=== PATIENT | male | born 1985 | race Caucasian/White ===

== ENCOUNTER 2024-11-03 00:11 | Observation (INO) | payer BC, SELFPAY ==
[2024-11-03] VITALS (67 sets, daily range): BP systolic 110–159; BP diastolic 77–108; PULSE 58–74; TEMP 36.4–36.6; O2SAT 89–97; BMI 26.6; BMI 28.6
--- NOTE | 2024-11-03 00:34 | ED.GENADUL1 ---
HPI HPI - General Adult General Chief complaint: Back Pain/Injury Stated complaint: BACK PAIN Time Seen by Provider: 11/03/24 00:22 Source: patient Mode of arrival: walk-in Limitations: no limitations History of Present Illness HPI narrative: cc = I think I have a kidney stone Pt with sudden onset right flank pain that began less than an hour ago but was preceded about 24 hours ago with some right sided abd and groin pain and decreased urine output despite sensation of need to urinate. No fever or chills. no skin changes. No recent trauma or change in activity to account for the pain Related Data Allergies Allergy/AdvReac Type Severity Reaction Status Date / Time No Known Drug Allergies Allergy Verified 11/03/24 00:15 Opioid HPI Opioid Management Most Recent Opioid Data: Last Pain Scale 8 11/03/24 00:28 11/03/24 PFSH PFSH Social History Little interest or pleasure in doing things: not at all Feeling down, depressed, or hopeless: not at all Exam Narrative Exam Narrative: Nurses notes and vital signs reviewed and patient is not hypoxic. afebrile General: uncomfortable. Skin: Warm, dry, no pallor noted. No rash to flank. Head: Normocephalic, atraumatic. Eye: Pupils are equal, round and EOMI. No scleral icterus. Ears, Nose, Mouth, and Throat: Oral mucosa is moist Cardiovascular: Regular Rate and Rhythm without murmur, gallop or rub. Respiratory: No accessory muscle use or respiratory distress. Lungs are clear to auscultation, no wheezing, rales or rhonchi Back: Right CVA tenderness Musculoskeletal: normal ROM GI: Abdomen is soft, non-distended. Normal bowel sounds.Right lateral abdominal tenderness to palpation. No rebound, guarding, or rigidity noted. Neurological: A&O x4. No cranial nerve dysfunction observed. No truncal ataxia. Moves all extremities. Sensation intact. Psychiatric: Cooperative and interactive. Normal mood and affect. Constitutional Vital Signs, click to edit/add: Last Vital Signs Temp 97.9 F 11/03/24 00:15 Pulse 66 11/03/24 00:15 Resp 16 11/03/24 00:15 BP 159/108 H 11/03/24 00:15 Pulse Ox 97 11/03/24 00:15 O2 Del Method Room Air 11/03/24 00:15 Course Vital Signs Vital signs: Vital Signs Temperature 97.9 F 11/03/24 00:15 Pulse Rate 66 11/03/24 00:15 Respiratory Rate 16 11/03/24 00:15 Blood Pressure 159/108 H 11/03/24 00:15 Pulse Oximetry 97 11/03/24 00:15 Oxygen Delivery Method Room Air 11/03/24 00:15 Temperature 97.9 F 11/03/24 00:15 Pulse Rate 66 11/03/24 00:15 Respiratory Rate 16 11/03/24 00:15 Blood Pressure 159/108 H 11/03/24 00:15 Pulse Oximetry 97 11/03/24 00:15 Oxygen Delivery Method Room Air 11/03/24 00:15 Medical Decision Making MDM Narrative Medical decision making narrative: Patient presents with symptoms concerning for acute kidney stone. He said that it had been more than 10 years since he had a kidney stone and has had no recent CT scans. Peripheral IV established blood drawn and sent for testing. Urine also ordered to be sent for testing. Patient ordered to undergo CT scanning of the abdomen and pelvis without contrast. He is ordered to receive IV Toradol and IV Zofran for his symptoms. He continues to have pain and was given 50 mcg of fentanyl. He was also given an additional 4 mg of nausea and an additional 50 mcg of fentanyl as symptoms persisted. CT of the abdomen pelvis revealed 3 mm distal right ureteral stone just above the right UVJ with associated partial right renal obstruction and mild right hydronephrosis. Despite repeated doses of pain medicine and antiemetics, the patient's symptoms were not improved enough for him to go home as he continued to have nausea, vomiting and intractable pain. I spoke with the telehospitalist and the patient will be admitted on an observation basis to medical surgical floor for pain control. I ordered him to receive IV Cipro as prophylaxis to prevent any associated infection. At this point the 3 mm stone is at the distal right UVJ and based on size I would expect it to pass. He does have some partial right renal obstruction and mild right hydro but there is flow there and the patient has normal renal function with only minimal increase in white blood cell count. Patient and I discussed his results, plan for treatment and the patient is agreeable to admission. Lab Data Lab results reviewed: Yes I reviewed the patient's lab results Labs: Lab Results 11/03/24 11/03/24 Range/Units 00:20 00:24 WBC 12.4 H (4.0-11.0) 10^3/uL RBC 5.70 (4.70-6.10) 10^6/uL Hgb 17.1 (14.0-18.0) g/dL Hct 47.4 (42.0-54.0) % MCV 83.2 (80.0-94.0) fL MCH 30.0 (25.9-34.0) pg MCHC 36.1 H (29.9-35.2) g/dL RDW 12.2 (11.0-15.0) % Plt Count 236 (150-450) 10^3/uL MPV 11.1 (9.5-13.5) fL Neut % (Auto) 62.5 (43.0-75.0) % Lymph % (Auto) 23.1 (20.5-60.0) % [place] % (Auto) 9.8 (1.7-12.0) % Eos % (Auto) 3.4 (0.9-7.0) % Baso % (Auto) 0.6 (0.2-2.0) % Neut # (Auto) 7.8 H (1.4-6.5) 10^3/uL Lymph # (Auto) 2.9 (1.2-3.8) 10^3/uL [place] # (Auto) 1.2 H (0.3-0.8) 10^3/uL Eos # (Auto) 0.4 (0.0-0.7) 10^3/uL Baso # (Auto) 0.1 (0.0-0.1) 10^3/uL Abs Immat Gran (auto) 0.07 H (0.00-0.03) 10^3/uL Imm/Tot Granulo (auto) 0.6 H (0.0-0.5) % Sodium 140 (136-145) mmol/L Potassium 3.6 (3.5-5.1) mmol/L Chloride 103 (98-107) mmol/L Carbon Dioxide 26.4 (21.0-32.0) mmol/L Anion Gap 14.2 BUN 12.0 (7.0-18.0) mg/dL Creatinine 1.23 (0.70-1.30) mg/dL Est GFR ( Amer) >60 (>=60 mL/min/1.73m^2) Est GFR (Non-Af Amer) >60 (>=60 mL/min/1.73m^2) BUN/Creatinine Ratio 9.8 Glucose 132 H (74-106) mg/dL Calcium 9.0 (8.5-10.1) mg/dL Urine Color Yellow (YELLOW) Urine Clarity Clear (CLEAR) Urine pH 5.5 (5.0-9.0) Ur Specific [place] >=1.030 A (1.005-1.025) Urine Protein 30 A (NEG/TRACE) mg/dL Urine Glucose (UA) Negative (NEGATIVE) mg/dL Urine Ketones Trace A (NEGATIVE) mg/dL Urine Occult Blood Large A (NEGATIVE) Urine Nitrite Negative (NEGATIVE) Urine Bilirubin Negative (NEGATIVE) Urine Urobilinogen 0.2 (0.2-1.0) EU/dL Ur Leukocyte Esterase Negative (NEGATIVE) Urine RBC 2-5 A (0-2) #/HPF Urine WBC 0-2 A (NONE SEEN) #/HPF Ur Squamous Epith Cells None seen (NONE/RARE) #/LPF Urine Crystals None seen (None Seen) #/HPF Urine Bacteria None seen (NONE SEEN) #/HPF Urine Casts Seen A (NONE SEEN) #/LPF Hyaline Casts Few Urine Mucus Trace A (NONE SEEN) Imaging Data CT scan - abdomen: Radiologist's impression: Radiologist report = 1. 3 mm stone in the distal right ureter located just above the right UVJ with associated partial right renal obstruction. 2. Mild right hydronephrosis. 3. Mild stranding noted along the margins of the right kidney and right ureter. 4. Normal appendix. 5. Small nonspecific mesenteric nodes. Discharge Plan Discharge Chief Complaint: Back Pain/Injury Clinical Impression: Intractable pain, Renal colic, Calculus of distal right ureter, Hydronephrosis, right Patient Disposition: Admitted as Observation Time of Disposition Decision: 03:57 Print Language: Kiswahili Referrals: Physician,Non-Staff, [Primary Care Provider] - 1 week
[2024-11-03 00:41] LABS: Basophils Absolute Auto 0.1 10^3/uL (0.0-0.1); Basophils Percent Auto 0.6 % (0.2-2.0); Eosinophils Absolute Auto 0.4 10^3/uL (0.0-0.7); Eosinophils Percent Auto 3.4 % (0.9-7.0); Hematocrit 47.4 % (42.0-54.0); Hemoglobin 17.1 g/dL (14.0-18.0); Immature Granulocytes Abs Auto 0.07 10^3/uL (0.00-0.03); Immature Granulocytes Pct Auto 0.6 % (0.0-0.5); Lymphocytes Absolute Auto 2.9 10^3/uL (1.2-3.8); Lymphocytes Percent Auto 23.1 % (20.5-60.0); Mean Corpuscular HGB Conc 36.1 g/dL (29.9-35.2); Mean Corpuscular Volume 83.2 fL (80.0-94.0); Mean Platelet Volume 11.1 fL (9.5-13.5); Monocytes Absolute Auto 1.2 10^3/uL (0.3-0.8); Monocytes Percent Auto 9.8 % (1.7-12.0); Neutrophils Absolute Auto 7.8 10^3/uL (1.4-6.5); Neutrophils Percent Auto 62.5 % (43.0-75.0); Platelet Count 236 10^3/uL (150-450); Red Cell Distribution Width 12.2 % (11.0-15.0); White Blood Count 12.4 10^3/uL (4.0-11.0)
[2024-11-03] MEDS: KETOROLAC TROMETHAMINE 30 MG/ML VIAL IVP (00:45)
[2024-11-03] MEDS: ONDANSETRON PF 4 MG/2 ML VIAL IV ×2 (00:45→01:34)
[2024-11-03 00:46] LABS: Anion Gap 14.2; BUN Creatinine Ratio 9.8; Carbon Dioxide 26.4 mmol/L (21.0-32.0); Chloride 103 mmol/L (98-107); Estimated GFR (African America >60 (>=60 mL/min/1.73m^2); Estimated GFR (Non-African Ame >60 (>=60 mL/min/1.73m^2); Glucose 132 mg/dL (74-106); Potassium 3.6 mmol/L (3.5-5.1); Sodium 140 mmol/L (136-145)
[2024-11-03 00:48] LABS: Bilirubin Urine NEGATIVE (NEGATIVE); Blood Urine LARGE (NEGATIVE); Clarity Urine CLEAR (CLEAR); Color Urine YELLOW (YELLOW); Glucose Urine UA NEGATIVE (NEGATIVE); Ketones Urine TRACE mg/dL (NEGATIVE); Leukocyte Esterase Urine NEGATIVE (NEGATIVE); Nitrite Urine NEGATIVE (NEGATIVE); Protein Urine 30 mg/dL (NEG/TRACE); Specific Gravity Urine >=1.030 (1.005-1.025); Urobilinogen Urine 0.2 EU/dL (0.2-1.0); pH Urine 5.5 (5.0-9.0)
[2024-11-03 00:51] LABS: WBC Urine 0-2 #/HPF (NONE SEEN)
[2024-11-03 00:52] LABS: Bacteria Urine NONE SEEN #/HPF (NONE SEEN); Cast Seen? SEEN #/LPF (NONE SEEN); Crystals Seen? None Seen #/HPF (None Seen); Hyaline Casts Urine FEW; Mucus Urine TRACE (NONE SEEN); Squamous Epithelial Cell Urine NONE SEEN #/LPF (NONE/RARE)
[2024-11-03] MEDS: FENTANYL CITRATE/PF 100 MCG/2 ML VIAL 50 MCG IV ×2 (01:34→03:43)
[2024-11-03] MEDS: HYDROMORPHONE HCL 1 MG/ML CARTRIDGE IVP (04:06)
[2024-11-03] MEDS: PROMETHAZINE HCL 25 MG in 0.9 % SODIUM CHLORIDE 50 ML 204 MG IV (04:06)
[2024-11-03] MEDS: 0.9 % SODIUM CHLORIDE 1,000 ML 1000 ML IV (04:07)
[2024-11-03] MEDS: TAMSULOSIN HCL 0.4 MG CAPSULE PO ×2 (04:12→21:26)
[2024-11-03] MEDS: HYOSCYAMINE SULFATE 0.125 MG TAB.SUBL SL (04:12)
[2024-11-03] MEDS: CIPROFLOXACIN IN 5 % DEXTROSE 400 MG/200 ML PREMIX 200 MG IV (04:23)
[2024-11-03] MEDS: HYDROCODONE/ACET 5-325 MG TABLET 1 TAB PO (05:38)
[2024-11-03] MEDS: 0.9 % SODIUM CHLORIDE 1,000 ML 100 ML IV (05:38)
[2024-11-03 06:45] LABS: Hematocrit 42.3 % (42.0-54.0); Hemoglobin 15.1 g/dL (14.0-18.0); Mean Corpuscular HGB Conc 35.7 g/dL (29.9-35.2); Mean Corpuscular Hemoglobin 29.8 pg (25.9-34.0); Mean Corpuscular Volume 83.4 fL (80.0-94.0); Mean Platelet Volume 11.2 fL (9.5-13.5); Platelet Count 199 10^3/uL (150-450); Red Blood Count 5.07 10^6/uL (4.70-6.10); Red Cell Distribution Width 12.3 % (11.0-15.0); White Blood Count 14.2 10^3/uL (4.0-11.0)
[2024-11-03 07:00] LABS: Anion Gap 8.5; BUN Creatinine Ratio 12.1; Calcium 8.8 mg/dL (8.5-10.1); Carbon Dioxide 28.6 mmol/L (21.0-32.0); Chloride 106 mmol/L (98-107); Estimated GFR (African America >60 (>=60 mL/min/1.73m^2); Estimated GFR (Non-African Ame >60 (>=60 mL/min/1.73m^2); Glucose 104 mg/dL (74-106); Potassium 4.1 mmol/L (3.5-5.1); Sodium 139 mmol/L (136-145)
[2024-11-03] MEDS: KETOROLAC TROMETHAMINE 30 MG/ML VIAL 15 MG IVP ×3 (07:57→21:26)
[2024-11-03] MEDS: LACTATED RINGER'S SOLUTION 1,000 ML 100 ML IV ×2 (07:57→16:00)
[2024-11-03] MEDS: LEVOFLOXACIN IN DEXTROSE 5 % 750 MG/150 ML PREMIX 100 MG IV (08:05)
[2024-11-03] MEDS: ENOXAPARIN SODIUM 40 MG/0.4 ML SYRINGE SUBQ (08:05)
--- NOTE | 2024-11-03 11:39 | PC.NURSE ---
1050 pt voided [address] puckett notified, order received to wait on cota insertion unless pt starts to retain again.
--- NOTE | 2024-11-03 12:41 | P.HP_ITS ---
HPI H&P: HPI History of Present Illness Chief complaint: kidney stone Narrative: 39-year-old with past medical history of renal stone about 10 years ago presented to ED with 1 day history of nausea, 3-5 episodes of vomiting along with urinary urgency and right flank pain. His pain is sharp, persistent and when it did not improve, he came to ED for further evaluation. Workup in ED revealed leukocytosis and right-sided distal ureteral stone causing mild right hydronephrosis for which patient was started on IV fluids. Combination of oral and IV narcotics for pain and IV antibiotic for associated urinary tract infection. Patient was seen earlier today. He reports feeling nauseous but denies vomiting. He still has persistent pain that has improved a little. Case discussed with urology. Will make patient n.p.o. after midnight for possible surgery tomorrow if he remains symptomatic and does not pass his ureteral stone Opioid HPI Opioid Management Most Recent Pain and Opioid Data: Last Pain Scale 4 11/03/24 12:17 11/03/24 Last Pain Assessment 11/03/24 11:50 Last MAR Pain Assessment 11/03/24 12:17 Last ORT Total Score 0 11/03/24 05:03 11/03/24 Last ORT Risk Category Low Risk 11/03/24 05:03 11/03/24 Review of Systems ROS Status of ROS 10 or more systems reviewed and unremark able except as noted in history and below [facility] Medical History (Updated 11/03/24 @ 12:44 by Shaikh Judit MD) Laceration of face ?S01.81XA - Laceration without foreign body of other part of head, initial encounter (ICD-10) Ear infection ?H66.90 - Otitis media, unspecified, unspecified ear (ICD-10) Surgical History (Updated 11/03/24 @ 05:31 by Janet Liu) H/O foot surgery ?Z98.890 - Other specified postprocedural states (ICD-10) Social History Highest level of school completed/degree received: high school graduate Little interest or pleasure in doing things: not at all Feeling down, depressed, or hopeless: not at all Do you think of yourself as: straight/heterosexual Gender Identity: male Meds Home Medications and Allergies Home Medications ?Medication ?Instructions ?Recorded ?Confirmed ?Type loratadine 10 mg capsule (Allergy 10 mg PO DAILY 11/03/24 11/03/24 History Relief (loratadine)) Allergies Allergy/AdvReac Type Severity Reaction Status Date / Time No Known Drug Allergies Allergy Verified 11/03/24 00:15 Exam Constitutional Vital Signs, click to edit/add: Last Vital Signs Temp 97.5 F L 11/03/24 05:03 Pulse 58 L 11/03/24 05:03 Resp 16 11/03/24 05:03 BP 110/86 11/03/24 12:17 Pulse Ox 94 L 11/03/24 12:20 O2 Del Method Room Air 11/03/24 07:32 Documenting provider has reviewed patient's vital signs: yes Common normals: no apparent distress and oriented x3 General appearance: cooperative HENMT Common normals: normocephalic and head/scalp atraumatic Head and scalp: normocephalic and atraumatic Eye Common normals: conjunctivae normal and no scleral icterus Conjunctiva: conjunctiva(e) normal Respiratory Common normals: normal respiratory effort and clear to auscultation bilaterally Effort & inspection: able to speak in complete sentences Auscultation: clear to auscultation bilaterally Cardio Common normals: regular rate, S1 normal heart sound and S2 normal heart sound Rate: regular rate Heart sounds: S1 normal and S2 normal GI Common normals: Normal to inspection, nondistended, normoactive bowel sounds present, soft to palpation, non-tender and no hepatosplenomegaly Palpation: soft and no hepatosplenomegaly Bladder/kidney exam: CVA tenderness on the right Extremity Common normals: no clubbing, cyanosis or edema Neuro Common normals: oriented x3, moves all extremities and no focal motor deficits Psych Common normals: mental status grossly normal, denies hallucinations, denies homicidal ideation and denies suicidal ideation Results Labs Labs: Short CBC 11/03/24 11/03/24 Range/Units 00:24 06:26 WBC 12.4 H 14.2 H (4.0-11.0) 10^3/uL Hgb 17.1 15.1 (14.0-18.0) g/dL Hct 47.4 42.3 (42.0-54.0) % Plt Count 236 199 (150-450) 10^3/uL BMP 11/03/24 11/03/24 00:24 06:26 Sodium 140 139 Potassium 3.6 4.1 Chloride 103 106 Carbon Dioxide 26.4 28.6 BUN 12.0 14.0 Creatinine 1.23 1.16 Glucose 132 H 104 Calcium 9.0 8.8 Urine 11/03/24 Range/Units 00:20 Urine Color Yellow (YELLOW) Urine Clarity Clear (CLEAR) Urine pH 5.5 (5.0-9.0) Ur Specific [place] >=1.030 A (1.005-1.025) Urine Protein 30 A (NEG/TRACE) mg/dL Urine Glucose (UA) Negative (NEGATIVE) mg/dL Assessment and Plan Assessment and Plan (1) Hydronephrosis, right: (2) Calculus of distal right ureter: (3) Renal colic: (4) UTI (urinary tract infection): Qualifiers: Urinary tract infection type: acute cystitis Hematuria presence: without hematuria Qualified Code(s): N30.00 - Acute cystitis without hematuria (5) Nausea and vomiting: Qualifiers: Vomiting type: unspecified Qualified Code(s): R11.2 - Nausea with vomiting, unspecified Plan Patient subjectively feels better with improvement in pain. Renal function is stable. However leukocytosis worsened on morning labs. Continue with IV fluids, pain control with combination of oral/IV narcotics along with Toradol. Continue with supportive care with Zofran as needed for nausea and vomiting. On IV Levaquin for UTI associated with ureteral stone. Follow-up urine culture. Urology consulted. Patient will be made n.p.o. after midnight. Anticipate needing surgery if remains symptomatic send patient does not pass stone. Case discussed with patient's nurse and updated on plan of care. Patient's questions/concerns addressed and answered. Needs continued monitoring/treatment for active symptoms.
--- NOTE | 2024-11-03 18:52 | PC.NURSE ---
report called to sherry on medsurg
[2024-11-04] VITALS (9 sets, daily range): BP systolic 105–138; BP diastolic 64–91; PULSE 58–83; TEMP 36.1–36.4; O2SAT 93–96
[2024-11-04] MEDS: KETOROLAC TROMETHAMINE 30 MG/ML VIAL 15 MG IVP ×2 (03:40→09:16)
[2024-11-04] MEDS: LACTATED RINGER'S SOLUTION 1,000 ML 100 ML IV (03:40)
[2024-11-04 06:02] LABS: Basophils Percent Auto 0.5 % (0.2-2.0); Eosinophils Absolute Auto 0.2 10^3/uL (0.0-0.7); Eosinophils Percent Auto 2.6 % (0.9-7.0); Hematocrit 41.7 % (42.0-54.0); Hemoglobin 14.4 g/dL (14.0-18.0); Immature Granulocytes Abs Auto 0.03 10^3/uL (0.00-0.03); Immature Granulocytes Pct Auto 0.5 % (0.0-0.5); Lymphocytes Absolute Auto 1.6 10^3/uL (1.2-3.8); Lymphocytes Percent Auto 24.2 % (20.5-60.0); Mean Corpuscular HGB Conc 34.5 g/dL (29.9-35.2); Mean Corpuscular Hemoglobin 29.1 pg (25.9-34.0); Mean Corpuscular Volume 84.2 fL (80.0-94.0); Mean Platelet Volume 11.2 fL (9.5-13.5); Monocytes Absolute Auto 0.5 10^3/uL (0.3-0.8); Monocytes Percent Auto 7.9 % (1.7-12.0); Neutrophils Absolute Auto 4.2 10^3/uL (1.4-6.5); Neutrophils Percent Auto 64.3 % (43.0-75.0); Platelet Count 172 10^3/uL (150-450); Red Blood Count 4.95 10^6/uL (4.70-6.10); Red Cell Distribution Width 12.4 % (11.0-15.0); White Blood Count 6.5 10^3/uL (4.0-11.0)
[2024-11-04 06:18] LABS: Alanine Aminotransferase 12 U/L (16-63); Albumin Globulin Ratio 1.2; Alkaline Phosphatase 96 U/L (46-116); Anion Gap 11.1; Aspartate Amino Transferase 12 U/L (15-37); BUN Creatinine Ratio 10.4; Bilirubin Total 0.6 mg/dL (0.2-1.0); Calcium 8.6 mg/dL (8.5-10.1); Carbon Dioxide 28.5 mmol/L (21.0-32.0); Chloride 108 mmol/L (98-107); Estimated GFR (African America >60 (>=60 mL/min/1.73m^2); Estimated GFR (Non-African Ame >60 (>=60 mL/min/1.73m^2); Globulin 2.6 g/dL; Glucose 95 mg/dL (74-106); Potassium 4.6 mmol/L (3.5-5.1); Sodium 143 mmol/L (136-145); Total Protein 5.6 g/dL (6.4-8.2)
[2024-11-04] MEDS: LEVOFLOXACIN IN DEXTROSE 5 % 750 MG/150 ML PREMIX 50 MG IV (09:15)
[2024-11-04] MEDS: ENOXAPARIN SODIUM 40 MG/0.4 ML SYRINGE SUBQ (09:16)
--- NOTE | 2024-11-04 10:48 | CM.NOTE ---
Rounds made with Dr. Spain. Plan of care reviewed with Mr. Colon per Dr. Spain. Await plan of care from Urology. Mr. Colon verbalizes understanding.
--- NOTE | 2024-11-04 13:31 | PM.CN ---
Consult Note: HPI Data of Consult Patient: new to practice Consult date: 11/04/24 Requesting Physician: Shaikh Judit MD Primary Care Provider: Non-Staff Physician, Consult Narrative Narrative: This gentleman was admitted to the hospital with a 3 to 4 mm distal right ureteral calculus causing pain, leukocytosis and ipsilateral hydronephrosis. He has been unable to pass his stone although his pain has subsided this morning. He had a mildly elevated white count which has now normalized with antibiotics. Follow-up KUB shows persistent stone in the distal right ureter. Urology was consulted for the above reasons. Upon questioning him further he states that about 10 years ago he passed a stone on his own. cc:: CC: Shaikh Judit MD Review of Systems ROS Status of ROS 10 or more systems reviewed and unremarkable except as noted in history and below [facility] Medical History Laceration of face ?S01.81XA - Laceration without foreign body of other part of head, initial encounter (ICD-10) Ear infection ?H66.90 - Otitis media, unspecified, unspecified ear (ICD-10) Surgical History H/O foot surgery ?Z98.890 - Other specified postprocedural states (ICD-10) Social History Highest level of school completed/degree received: high school graduate Little interest or pleasure in doing things: not at all Feeling down, depressed, or hopeless: not at all Do you think of yourself as: straight/heterosexual Gender Identity: male Meds Home Medications and Allergies Home Medications ?Medication ?Instructions ?Recorded ?Confirmed ?Type loratadine 10 mg capsule (Allergy 10 mg PO DAILY 11/03/24 11/03/24 History Relief (loratadine)) Allergies Allergy/AdvReac Type Severity Reaction Status Date / Time No Known Drug Allergies Allergy Verified 11/03/24 00:15 Exam Narrative Exam Narrative: He is resting comfortably in bed. He is in no acute distress. Abdomen is soft and tender in the right CVA region. No masses are palpable. He is nontender in the right lower quadrant. External genitalia are unremarkable. Constitutional Vital Signs, click to edit/add: Last Vital Signs Temp 97.6 F 11/04/24 03:45 Pulse 62 11/04/24 03:45 Resp 18 11/04/24 08:23 BP 129/75 11/04/24 03:45 Pulse Ox 94 L 11/04/24 10:28 O2 Del Method Room Air 11/04/24 10:28 Results Labs Labs: Short CBC 11/04/24 Range/Units 05:50 WBC 6.5 (4.0-11.0) 10^3/uL Hgb 14.4 (14.0-18.0) g/dL Hct 41.7 L (42.0-54.0) % Plt Count 172 (150-450) 10^3/uL BMP 11/04/24 05:50 Sodium 143 Potassium 4.6 Chloride 108 H Carbon Dioxide 28.5 BUN 10.0 Creatinine 0.96 Glucose 95 Calcium 8.6 Liver Function 11/04/24 Range/Units 05:50 Total Bilirubin 0.6 (0.2-1.0) mg/dL AST 12 L (15-37) U/L ALT 12 L (16-63) U/L Alkaline Phosphatase 96 (46-116) U/L Albumin 3.0 L (3.4-5.0) g/dL Assessment and Plan Assessment and Plan (1) Hydronephrosis, right: Assessment and Plan: This is from his obstructing right distal stone. This will resolve once his stone is surgically removed. (2) Calculus of distal right ureter: Assessment and Plan: 3 mm oblong distal right ureteral calculus. Management options were discussed with the patient in great detail. He has chosen not to take the conservative route and attempt medical expulsion as an outpatient. This gentleman is desirous for ureteroscopic stone manipulation and possible stent placement. He has signed an informed consent after all risks were explained. Over 30 minutes of clinical time was spent reviewing his CAT scan, KUB, talking with the patient and the nursing staff. Thank you for letting me take part in his care. (3) Renal colic: Assessment and Plan: This is from the intermittent obstruction from the stone. (4) UTI (urinary tract infection): Assessment and Plan: His white count has normalized with IV antibiotics. Qualifiers: Urinary tract infection type: acute cystitis Hematuria presence: without hematuria Qualified Code(s): N30.00 - Acute cystitis without hematuria (5) Nausea and vomiting: Assessment and Plan: Nausea and vomiting have subsided with conservative treatment. Qualifiers: Vomiting type: unspecified Qualified Code(s): R11.2 - Nausea with vomiting, unspecified
--- NOTE | 2024-11-04 13:38 | PM.URSON ---
Urology Surgery Operative Note Operative Note Procedure Date: 11/04/24 Time Out Performed: yes Pre-op Diagnosis: Distal right ureteral calculus Post-op Diagnosis: same as pre-op Procedures performed: 1. Cystoscopy. 2. Distal right ureteral dilation to 10 [place]. 3. Right ureteroscopy. 4. Thulium laser lithotripsy of right ureteral calculus. 5. Stone fragment basket extraction. Anesthesia: General-LMA Primary Surgeon: Sagar Hardy Complications: None Estimated blood loss (mL): 5 Findings: 1. Distal right ureteral stenosis from edema due to the stone. 2. [place] shaped distal right ureteral calculus Specimens: Distal right ureteral calculus fragments Drains: None Indications for Procedures: This gentleman has a 3 to 4 mm distal right ureteral calculus that he is unable to pass. He now presents for definitive ureteroscopic stone manipulation and possible right stent placement. He has signed an informed consent after all risks were explained. Detailed description of Procedure: The patient was brought to the operating room and placed on the operating room table in the supine position. SCDs were placed on the lower extremities and turned on and functioning during the entire case. Timeout was done by all parties in the room. We all agreed upon the patient's identification and the planned procedures for this patient. Genn. anesthesia was then administered. The patient was then repositioned into the modified dorsal lithotomy position. All pressure points were satisfactorily padded. Genitalia were sterilely prepped and draped in usual fashion. I started by passing a 22 [place] Olympus cystoscope per urethra and into the bladder. Panendoscopy in the bladder revealed no evidence of any tumors stones or lesions. I then passed a Glidewire through the scope and cannulated the right ureter. The wire went all way to the kidney. While using fluoroscopy I could see his stone in the distal right ureter region. I then remove the cystoscope and then passed a semirigid ureteroscope into the right ureter. The distalmost right ureter was edematous and stenosed. I was able to get beyond it and then to the stone. The stone was very oblong in shape; nearly stellate. I then used 270 Angstrom laser fiber and passed it through the scope and made contact with the stone. The thulium laser was used at 6 W continuously on the fragment mode. The stone was broken into a few pieces. A 0 tip nitinol basket was used to extract pieces and dumped them in the base of the bladder. I went up and down the ureter numerous times extracting pieces until the right ureter was free of stone. Ureteroscope was removed. Cystoscope was backloaded over the wire and passed back in the bladder. I then used a 10 [place] rigid dilator to dilate the distal ureter. I elected not to place a stent. The wire was removed as was the dilator. The Ilich evacuator was used to get the stone pieces out from the base of the bladder. These were sent for stone analysis. Bladder was drained of its contents and the scope was then removed. He was then transferred to a [facility] bed and wheeled to PACU in stable condition.
--- NOTE | 2024-11-04 14:22 | P.DS_ITS ---
DS: Providers Provider Date of admission: 11/03/24 04:50 Primary care physician: Non-Staff PhysicianMD Admitting clinician: Shaikh Judit Attending physician on admission: Shaikh Judit Consults: 11/03/24 12:40 Consult to Urology Routine Consulting Provider: Christopher Wilson Reason for consultation: Ureteral stone Attending physician on discharge: Shaikh Judit Discharging clinician: Shaikh Judit Anticipated date of discharge: 11/04/24 DS: Diagnosis Discharge Diagnosis (1) Hydronephrosis, right: (2) Calculus of distal right ureter: (3) Renal colic: (4) UTI (urinary tract infection): Qualifiers: Urinary tract infection type: acute cystitis Hematuria presence: without hematuria Qualified Code(s): N30.00 - Acute cystitis without hematuria (5) Nausea and vomiting: Qualifiers: Vomiting type: unspecified Qualified Code(s): R11.2 - Nausea with vomiting, unspecified DS: Summary Hospital Course Hospital Course: 39-year-old presented to ED with 1 day history of nausea, 3-5 episodes of vomiting along with urinary urgency and right flank pain. Workup in ED revealed leukocytosis and right-sided distal ureteral stone causing mild right hydronephrosis for which patient was started on IV fluids. Combination of oral and IV narcotics for pain and IV antibiotic for associated urinary tract infection. Urology was consulted. Patient was taken to the OR today where he underwent stone extraction but no ureteral stent was placed. Patient is stable for discharge. He will need to follow-up with PCP and urology as outpatient. Educated on worrisome signs and symptoms and instructed to return to ED if he develop nausea, vomiting, difficulty with urination and or fever. Status at Discharge Functional status at discharge: independent ambulation Overall status at discharge: patient is back to baseline Time Spent with Patient Time attestation: Total time spent providing and/or coordinating discharge services: Time spent: greater than 30 minutes Exam Constitutional Vital Signs, click to edit/add: Last Vital Signs Temp 96.9 F L 11/04/24 13:32 Pulse 59 L 11/04/24 14:02 Resp 18 11/04/24 14:02 BP 121/91 11/04/24 14:02 Pulse Ox 96 11/04/24 14:02 O2 Del Method Room Air 11/04/24 14:02 Documenting provider has reviewed patient's vital signs: yes Common normals: no apparent distress and oriented x3 General appearance: cooperative Respiratory Common normals: normal respiratory effort and clear to auscultation bilaterally Effort & inspection: able to speak in complete sentences Auscultation: clear to auscultation bilaterally Cardio Common normals: regular rate, S1 normal heart sound and S2 normal heart sound Rate: regular rate Heart sounds: S1 normal and S2 normal Extremity Common normals: no clubbing, cyanosis or edema Neuro Common normals: oriented x3, moves all extremities and no focal motor deficits Psych Common normals: mental status grossly normal, denies hallucinations, denies homicidal ideation and denies suicidal ideation DS: Data Data Completed and Pending Labs on day of discharge: Labs from last 24 hours 11/04/24 05:50 WBC 6.5 RBC 4.95 Hgb 14.4 Hct 41.7 L MCV 84.2 MCH 29.1 MCHC 34.5 RDW 12.4 Plt Count 172 MPV 11.2 Neut % (Auto) 64.3 Lymph % (Auto) 24.2 Carlton % (Auto) 7.9 Eos % (Auto) 2.6 Baso % (Auto) 0.5 Neut # (Auto) 4.2 Lymph # (Auto) 1.6 Carlton # (Auto) 0.5 Eos # (Auto) 0.2 Baso # (Auto) 0.0 Abs Immat Gran (auto) 0.03 Imm/Tot Granulo (auto) 0.5 Sodium 143 Potassium 4.6 Chloride 108 H Carbon Dioxide 28.5 Anion Gap 11.1 BUN 10.0 Creatinine 0.96 Est GFR ( Amer) >60 Est GFR (Non-Af Amer) >60 BUN/Creatinine Ratio 10.4 Glucose 95 Calcium 8.6 Total Bilirubin 0.6 AST 12 L ALT 12 L Alkaline Phosphatase 96 Total Protein 5.6 L Albumin 3.0 L Globulin 2.6 Albumin/Globulin Ratio 1.2 Discharge Plan Discharge Disposition: Home, Self-Care Discharge Medications: New cefdinir 300 mg capsule 300 mg PO BID 5 Days Qty: 10 0RF Continued Allergy Relief (loratadine) 10 mg capsule 10 mg PO DAILY Activity: increase activity as tolerated Diet: advance to your usual diet Print Language: Bulgarian Forms: Portal Instructions Follow Up Appointments: f/u with PCP in one week F/u with Urology in 2 weeks
--- NOTE | 2024-11-07 13:14 | CM.DCFOLLOWU ---
Person spoke with: patient How are you feeling? pain varies, getting better, slowly How is your pain? getting better, slowly Did you understand your discharge instructions?yes Do you have any questions about your discharge instructions? no Were you given any prescriptions at discharge? yes Were you able to get your prescriptions filled?yes Do you understand how to take your medications as ordered? yes Do you have any questions about your follow up appointment and do you plan to keep your follow up appointment? no questions, reviewed follow ups Is there anything else that you would like to discuss? no Questions/Comments/Concerns/Other: none
== END 2024-11-04 16:06 | disposition home or self-care (01) ==
LOC: ER 04:01 → ICU 05:01 → MS 20:54
PROVIDERS: Registered Nurse; Urology; Admitting Provider Internal Medicine; Emergency Provider Emergency Medicine; Visit Provider Internal Medicine
PROC: (CPT 910; principal; 2024-11-04 12:55)
DX: N13.6 Pyonephrosis (principal); Q62.10 Congenital occlusion of ureter, unspecified; Z87.442 Personal history of urinary calculi; R10.9 Unspecified abdominal pain; R11.2 Nausea with vomiting, unspecified
CPT/HCPCS: 52344; 52353; 36415; 51798; 74018; 74176; 76000; 80048; 80053; 81001; 82365; 85025; 85027; 94761; 96361; 96365; 96366; 96367; 96372; 96375; 96376; 99285; 99999; G0378; J0744; J1100; J1171; J1650; J1885; J2250; J2405; J2550; J2704; J3010

== ENCOUNTER 2024-11-06 05:30 | Emergency (ER) | payer BC, SELFPAY ==
[2024-11-06 05:37] VITALS: BP 158/114; TEMP 36.7; O2SAT 95; BMI 26.6
--- OUTSIDE RECORDS SUMMARY | 2024-11-06 05:48 | XMS_ITS | CCD ---
Author Organization [facility] Care Team Providers Care Sandwich Board Carrier Name Role Phone BRY SALES Attending Unavailable DO Freddy Gutierres Primary Care Provider DO Freddy Gutierres Attending Provider Freddy Gutierres Attending Unavailable Freddy Gutierres Primary Care Unavailable Freddy Gutierres Admitting Unavailable Allergies Allergy Classification Reported Allergen(s) Allergy Type Date of Onset Reaction(s) Facility (1 source) vortioxetine Drug Allergy 06-27-2024 [facility] Repository Medications Current Medications Medication Drug Class(es) Dates Sig (Normalized) Sig (Original) cefdinir 300 mg oral capsule (2 sources) Cephalosporin Antibacterial Start: 06-27-2024 take 300 mg by mouth twice daily Cefdinir Active 300 MG PO Twice daily 16 06June 27, 2024 12:00am fluticasone propionate 0.05 mg/actuat metered dose nasal spray (2 sources) Corticosteroid Start: 06-27-2024 take 1 spray(s) nasal route once daily Fluticasone Propionate (Allergy Relief (Fluticasone)) 50 mcg/actuation spray,suspension Active 2 SPRAY INTRANASAL Daily June 27, 2024 12:00am administer into each nostril Completed/Discontinued Medications Medication Drug Class(es) Dates Sig (Normalized) Sig (Original) methylPREDNISolone 4 mg oral tablet (3 sources) Corticosteroid Start: 4 End: take 1 tablet by mouth once Methylprednisolone (Medrol (Shaquille)) 4 mg tablets,dose pack Discontinued 0 PO per package directions June 02, 2024 12:00am June 27, 2024 9:28am PO PER PKG DIR for 6 days Problems Problem Classification Problem Date Documented Date Episodic/Chronic Anxiety disorders (2 sources) Mixed anxiety and depressive disorder; Translations: [Other specified anxiety disorders] 06-27-2024 Chronic Disorders of lipid metabolism (2 sources) Hyperlipidemia; Translations: [Hyperlipidemia, unspecified] 06-27-2024 Chronic Malaise and fatigue (5 sources) Fatigue; Translations: [Other fatigue] Onset: 06-27-2024 06-27-2024 Episodic Miscellaneous mental health disorders (3 sources) Anxiety; Translations: [Other symptoms and signs involving emotional state] 06-04-2021 Episodic Other screening for suspected conditions (not mental disorders or infectious disease) (3 sources) Encounter for screening for malignant neoplasm of prostate; Translations: [Screening for malignant neoplasms of prostate] Onset: 06-27-2024 06-27-2024 Episodic Otitis media and related conditions (4 sources) Other acute nonsuppurative otitis media, bilateral; Translations: [Acute nonsuppurative otitis media, unspecified] 06-02-2024 Episodic Results Test Name Value Interpretation Reference Range Facility Complete Blood Count Auto Di ffon 06-27-2024 Basophils (Bld) [#/Vol] 0.1 10*3/uL Normal 0.0-0.2 [facility] Comment on above: Result Comment: PERF ORMED BY: [place] [address] PATHOLOGIST KITCHEN [employer] HANDYMAN EMMY CADENA M.D. Performed By: #### T EST, TSH3, CMP, PSAS, LIPID, CBC #### [address] Basophils/100 WBC (Bld) 0.8 % Normal . [facility] Comment on above: Performed By: #### T EST, TSH3, CMP, PSAS, LIPID, CBC #### [facility] [address] [place] [address] [place] Eosinophils (Bld) [#/Vol] 0.3 10*3/uL Normal 0.0-0.45 [facility] Comment on above: Performed By: #### T EST, TSH3, CMP, PSAS, LIPID, CBC #### [facility] [address] [place] [address] [place] Eosinophils/100 WBC (Bld) 5.4 % Normal . [facility] Comment on above: Performed By: #### T EST, TSH3, CMP, PSAS, LIPID, CBC #### [address] Erythrocyte distribution width (RBC) [Ratio] 13.2 % Normal 12.0-14.8 [facility] Comment on above: Performed By: #### T EST, TSH3, CMP, PSAS, LIPID, CBC #### [address] Hematocrit (Bld) [Volume fraction] 46.4 % Normal 38.8-50.0 [facility] Comment on above: Performed By: #### T EST, TSH3, CMP, PSAS, LIPID, CBC #### [address] Hemoglobin (Bld) [Mass/Vol] 16.1 g/dL Normal 13.0-17.0 [facility] Comment on above: Performed By: #### T EST, TSH3, CMP, PSAS, LIPID, CBC #### [address] Lymphocytes (Bld) [#/Vol] 1.7 10*3/uL Normal 1.00-4.8 [facility] Comment on above: Performed By: #### T EST, TSH3, CMP, PSAS, LIPID, CBC #### [address] Lymphocytes/100 WBC (Bld) 27.4 % Normal . [facility] Comment on above: Performed By: #### T EST, TSH3, CMP, PSAS, LIPID, CBC #### [address] MCH (RBC) [Entitic mass] 29.2 pg Normal 27.5-35.2 [facility] Comment on above: Performed By: #### T EST, TSH3, CMP, PSAS, LIPID, CBC #### [address] MCV (RBC) [Entitic vol] 84.2 fL Normal 83.5-101 [facility] Comment on above: Performed By: #### T EST, TSH3, CMP, PSAS, LIPID, CBC #### [address] Mean Corpuscular HGB Conc 34.8 g/dL Normal 32.5-35.6 [facility] Comment on above: Performed By: #### T EST, TSH3, CMP, PSAS, LIPID, CBC #### [address] Monocytes (Bld) [#/Vol] 0.4 10*3/uL Normal 0.0-0.8 [facility] Comment on above: Performed By: #### T EST, TSH3, CMP, PSAS, LIPID, CBC #### [address] Monocytes/100 WBC (Bld) 6.8 % Normal . [facility] Comment on above: Performed By: #### T EST, TSH3, CMP, PSAS, LIPID, CBC #### [address] Neutrophils (Bld) [#/Vol] 3.6 10*3/uL Normal 1.8-7.7 [facility] Comment on above: Performed By: #### T EST, TSH3, CMP, PSAS, LIPID, CBC #### [address] Neutrophils/100 WBC (Bld) 59.6 % Normal . [facility] Comment on above: Performed By: #### T EST, TSH3, CMP, PSAS, LIPID, CBC #### [address] NRBC% 0.2 /100{WBC} Normal 0-0.5 The [facility] Comment on above: Performed By: #### T EST, TSH3, CMP, PSAS, LIPID, CBC #### [address] Platelet mean volume (Bld) [Entitic vol] 10.1 fL Normal 6.6-10.1 [facility] Comment on above: Performed By: #### T EST, TSH3, CMP, PSAS, LIPID, CBC #### [facility] [address] Platelets (Bld) [#/Vol] 194 10*3/uL Normal 150-450 [facility] Comment on above: Performed By: #### T EST, TSH3, CMP, PSAS, LIPID, CBC #### [facility] [address] RBC (Bld) [#/Vol] 5.51 10*6/uL Normal 3.90-5.[address] [facility] Comment on above: Performed By: #### T EST, TSH3, CMP, PSAS, LIPID, CBC #### [address] WBC (Bld) [#/Vol] 6.1 10*3/uL Normal 4.1-10.5 The [facility] Comment on above: Performed By: #### T EST, TSH3, CMP, PSAS, LIPID, CBC #### [address] Comprehensive Metabolic Pane kristi 06-27-2024 Albumin [Mass/Vol] 4.4 g/dL Normal 3.5-5.7 [facility] Comment on above: Performed By: #### T EST, TSH3, CMP, PSAS, LIPID, CBC #### [address] Albumin/Globulin [Mass ratio] 1.8 {ratio} Normal [facility] Comment on above: Performed By: #### T EST, TSH3, CMP, PSAS, LIPID, CBC #### [address] ALP [Catalytic activity/Vol] 102 U/L Normal 34-104 [facility] Comment on above: Performed By: #### T EST, TSH3, CMP, PSAS, LIPID, CBC #### [address] ALT [Catalytic activity/Vol] 17 U/L Normal 7-52 [facility] Comment on above: Performed By: #### T EST, TSH3, CMP, PSAS, LIPID, CBC #### [address] Anion gap [Moles/Vol] 9.7 mmol/L Normal 6.0-15.0 [facility] Comment on above: Performed By: #### T EST, TSH3, CMP, PSAS, LIPID, CBC #### [address] AST [Catalytic activity/Vol] 16 U/L Normal 13-39 [facility] Comment on above: Performed By: #### T EST, TSH3, CMP, PSAS, LIPID, CBC #### [address] Bilirubin [Mass/Vol] 0.8 mg/dL Normal 0.3-1.0 [facility] Comment on above: Performed By: #### T EST, TSH3, CMP, PSAS, LIPID, CBC #### [address] Calcium [Mass/Vol] 9.5 mg/dL Normal 8.6-10.3 The [facility] Comment on above: Performed By: #### T EST, TSH3, CMP, PSAS, LIPID, CBC #### [address] Chloride [Moles/Vol] 105 mmol/L Normal 98-107 [facility] Comment on above: Performed By: #### T EST, TSH3, CMP, PSAS, LIPID, CBC #### [address] CO2 [Moles/Vol] 28.9 mmol/L Normal 21.0-31.0 The [facility] Comment on above: Performed By: #### T EST, TSH3, CMP, PSAS, LIPID, CBC #### [address] Creatinine [Mass/Vol] 0.92 mg/dL Normal 0.70-1.30 [facility] Comment on above: Performed By: #### T EST, TSH3, CMP, PSAS, LIPID, CBC #### [facility] [address] [place] [address] [place] GFR/1.73 sq M.predicted MDRD (S/P/Bld) [Vol rate/Area] mL/min/{1.73_m2} Normal [facility] Comment on above: Performed By: #### T EST, TSH3, CMP, PSAS, LIPID, CBC #### [facility] [address] [place] [address] [place] Globulin (S) [Mass/Vol] 2.4 g/dL Normal [facility] Comment on above: Performed By: #### T EST, TSH3, CMP, PSAS, LIPID, CBC #### [address] Glucose [Mass/Vol] 97 mg/dL Normal 70-100 The [facility] Comment on above: Result Comment: [facility] Glucose Reference Range is dependent on time and content of last meal. Glucose of more than 200 mg/dL in a nonstressed, ambulatory subject supports the diagnosis of Diabetes Mellitus. ADA recommended reference range Performed By: #### T EST, TSH3, CMP, PSAS, LIPID, CBC #### [address] Potassium [Moles/Vol] 4.6 mmol/L Normal 3.5-5.1 [facility] Comment on above: Performed By: #### T EST, TSH3, CMP, PSAS, LIPID, CBC #### [facility] [address] [place] [address] [place] Protein [Mass/Vol] 6.8 g/dL Normal 6.4-8.9 [facility] Comment on above: Performed By: #### T EST, TSH3, CMP, PSAS, LIPID, CBC #### [address] Sodium [Moles/Vol] 139 mmol/L Normal 136-145 [facility] Comment on above: Performed By: #### T EST, TSH3, CMP, PSAS, LIPID, CBC #### [facility] [address] Urea nitrogen [Mass/Vol] 11 mg/dL Normal 7-25 [facility] Comment on above: Performed By: #### T EST, TSH3, CMP, PSAS, LIPID, CBC #### [facility] [address] FPG ECG *PCP OFFICE ONLY*on 06-27-2024 FPG ECG *PCP OFFICE ONLY* [facility] [address] [place] [address] [place] [address] Electrocardiograph Report Signed Patient: Manny Colon MR#: [id number] : 1985 Acct:[id number] Age/Sex: 39 / M ADM Date: 06/27/24 [facility]: Type: [facility] Attending Dr: Freddy Gutierres DO Ordering Provider: Freddy Gutierres DO Date of Service: 06/27/24 ECG/FPG ECG *PCP OFFICE ONLY*: Z00.00 - Encounter for general adult medical examination ... Copies to: Test Reason : Blood Pressure : */* mmHG Vent. Rate : 55 BPM Atrial Rate : 55 BPM P-R Int : 156 ms QRS Dur : 94 ms QT Int : 402 ms P-R-T Axes : 17 33 35 degrees QTcB Int : 384 ms Sinus bradycardia Otherwise normal ECG When compared with ECG of 04-Jun-2021 21:08, T wave amplitude has increased in Lateral leads Confirmed by Melchor Rader ([id number]) on 06/27/2024 9:04:36 PM Referred By: Electronically Signed By: Melchor Rader Transcribed By: MUS Signed By Melchor Rader MD 06/27/242103 Normal [facility] Lipid Panelon 06-27-2024 Cholesterol [Mass/Vol] 202 mg/dL High 140-200 [facility] Comment on above: Result Comment: Chol less than 200 mg/dl low risk Chol 201-239 mg/dl borderline risk Chol 240 mg/dl and greater high risk Performed By: #### T EST, TSH3, CMP, PSAS, LIPID, CBC #### [facility] [address] Cholesterol in HDL [Mass/Vol] 49 mg/dL Normal 23-92 [facility] Comment on above: Result Comment: HDL CHOL ATP-III CLASSIFICATION Cardiovascular Risk HDL > or equal to 60 mg/dL LOW HDL < 40 mg/dL HIGH Performed By: #### T EST, TSH3, CMP, PSAS, LIPID, CBC #### [facility] [address] Cholesterol.total/Ch olesterol in HDL [Mass ratio] 4.1 {ratio} Normal <5.0 [facility] Comment on above: Performed By: #### T EST, TSH3, CMP, PSAS, LIPID, CBC #### [facility] [address] LDL Cholesterol,Calculat ed 136 mg/dL High 0-100 [facility] Comment on above: Result Comment: LDL ATP III CLASSIFICATION LDL less than 100 mg/dL Optimal LDL 100-129 mg/dL Near or above optimal LDL 130-159 mg/dL Borderline high LDL 160-189 mg/dL High LDL greater than 189 mg/dL Very high Performed By: #### T EST, TSH3, CMP, PSAS, LIPID, CBC #### [facility] [address] Triglyceride w/Reflex 87 mg/dL Normal 0-149 [facility] Comment on above: Result Comment: TRIG ATP III CLASSIFICATION TRIG less than 150 mg/dL Normal TRIG 150-199 mg/dL Borderline high TRIG 200-500 mg/dL High TRIG greater than 500 mg/dL Very high Standard traceable to the Center for Disease Conrtrol and Prevention (CDC) test method. Performed By: #### T EST, TSH3, CMP, PSAS, LIPID, CBC #### [facility] [address] VLDL CHOLESTEROL 17 mg/dL Normal [facility] Comment on above: Performed By: #### T EST, TSH3, CMP, PSAS, LIPID, CBC #### [facility] [address] PSA Screen (Yearly Only)on PSA Screen (Yearly Only) 0.390 ng/mL Normal 0.000-4.000 [facility] Comment on above: Order Comment: Is pa tient <50 yrs? Medicare does not pay <50.: Y What is the date of the last PSA Screen?: NONE Is Medicare the insurance?: N Did you verify eligibility (Dx Time) check TestViewGp: YES TO ALL Result Comment: Seri al tumor marker results determined by assays using different manufacturers or methods may not be comparable. [facility] assistant to the ceo and method: [employer] DXI, CHEMILUMINESCENT IMMUNOASSAY. PERFORMED BY: [place] [address] PATHOLOGIST KITCHEN HELP HANDYMAN EMMY CADENA M.D. Performed By: #### T EST, TSH3, CMP, PSAS, LIPID, CBC #### [place] [id number] [place] Testosteroneon 06-27-2024 Testosterone 3.50 ng/mL Normal 1.75-7.81 [facility] Comment on above: Result Comment: PERF ORMED BY: [place] [id number] PATHOLOGIST KITCH[employer] HANDYMAN EMMY CADENA M.D. Performed By: #### T EST, TSH3, CMP, PSAS, LIPID, CBC #### [place] [id number] [place] Thyroid Stimulating Hormoneo n 06-27-2024 TSH Qn 2.20 m[IU]/L Normal 0.45-5.33 [facility] Comment on above: Result Comment: PERF ORMED BY: [place] [id number] PATHOLOGIST KITCH[employer] HEL[employer] HANDYMAN EMMY CADENA M.D. Performed By: #### T EST, TSH3, CMP, PSAS, LIPID, CBC #### [place] [id number] [place] Vital Signs Date Time Vital Sign Value Performing Clinician Ofelia rosa 06-27-2024 09:33-0400 Body height 175.26 cm DO [employer] Work Phone: [facility] 06-27-2024 09:33-0400 Body mass index (BMI) [Ratio] 28.9 kg/m2 DO Freddy Kuns Work Phone: [facility] 06-27-2024 09:33-0400 Body weight 88.9 kg DO Freddy Kuns Work Phone: [facility] 06-27-2024 09:33-0400 Diastolic blood pressure 82 mm[Hg] DO Freddy Kuns Work Phone: [facility] 06-27-2024 09:33-0400 Heart rate 60 /min DO Freddy Kuns Work Phone: [facility] 06-27-2024 09:33-0400 Respiratory rate 16 /min DO Freddy Kuns Work Phone: [facility] 06-27-2024 09:33-0400 SaO2% (BldA) [Mass fraction] 98 % DO Freddy Kuns Work Phone: [facility] 06-27-2024 09:33-0400 Systolic blood pressure 118 mm[Hg] DO Freddy Kuns Work Phone: [facility] 06-02-2024 12:00-0400 Body height 175.26 cm [facility] 06-02-2024 12:00-0400 Body mass index (BMI) [Ratio] 23.1 kg/m2 [facility] 06-02-2024 12:00-0400 Body temperature 98.1 [degF] [facility] 06-02-2024 12:00-0400 Body weight 71 kg [facility] 06-02-2024 12:00-0400 Diastolic blood pressure 100 mm[Hg] [facility] 06-02-2024 12:00-0400 Heart rate 63 /min [facility] 06-02-2024 12:00-0400 Respiratory rate 18 /min [facility] 06-02-2024 12:00-0400 SaO2% (BldA) [Mass fraction] 97 % [facility] 06-02-2024 12:00-0400 Systolic blood pressure 135 mm[Hg] [facility] Encounters Encounter Date Encounter Type Care Provider Facility Start: 06-27-2024 Non-patient / Non-visit [facility] Cardiology Work Phone: Start: 06-27-2024 End: 06-27-2024 ambulatory DO Freddy Gutierres Work Phone: [facility] Work Phone: Start: 06-27-2024 End: 06-27-2024 Encounter for general adult medical examination without abnormal findings DO Freddy Corrigan and [employer] Work Phone: [facility] Start: 06-27-2024 End: 06-27-2024 Patient encounter procedure DO Freddy Corrigan and [employer] Work Phone: [facility] Family Medicine [place] Work Phone: Start: 06-02-2024 End: 06-02-2024 ambulatory [facility] Work Phone: Start: 06-02-2024 End: 06-02-2024 Patient encounter procedure [facility] [place] Work Phone: Start: 08-06-2023 End: 08-06-2023 ambulatory [employer] Not Available Plan of Treatment Date Care Activity Detail Author Start: 06-27-2024 Comprehensive metabo lic 2000 panel - Serum or Plasma [facility] Start: 06-27-2024 End: 06-27-2024 [facility] Albumin/Globulin ratio [facility] Anion gap measurement [facility] Basophils [#/volume] in Blood by Automated count [facility] Basophils/100 leukoc ytes in Blood by Automated count [facility] Calculated LDL cholesterol level [facility] Cholesterol.total/Ch olesterol in HDL [Mass Ratio] in Serum or Plasma [facility] Eosinophils/100 leuk ocytes in Blood by Automated count [facility] Erythrocyte distribu tion width [Ratio] by Automated count [facility] Erythrocytes [#/volume] in Blood [facility] Globulin [Mass/volume] in Serum [facility] Hematocrit [Volume F raction] of Blood [facility] Hemoglobin [Mass/vol ume] in Blood [facility] Leukocytes [#/volume ] corrected for nucleated erythrocytes in Blood by Automated coun [facility] Leukocytes [#/volume] in Blood [facility] Lymphocytes [#/volum e] in Blood by Automated count [facility] Lymphocytes/100 leuk ocytes in Blood by Automated count [facility] MCH [Entitic mass] b y Automated count [facility] MCHC [Mass/volume] b y Automated count [facility] MCV [Entitic volume] by Automated count [facility] Monocytes [#/volume] in Blood by Automated count [facility] Monocytes/100 leukoc ytes in Blood by Automated count [facility] Neutrophils [#/volum e] in Blood by Automated count [facility] Neutrophils/100 leuk ocytes in Blood by Automated count [facility] Nucleated erythrocyt es [Presence] in Blood by Automated count [facility] Platelet mean volume [Entitic volume] in Blood by Automated count [facility] Platelets [#/volume] in Blood [facility] VLDL cholesterol measurement [facility] Payers Date Payer Category Payer Self-pay [id number] 2021 Unknown [id number] 1985 Unknown [id number] Private Health Insurance [employer] [id number] Unknown MMO [id number] Unknown [id number] Social History Date Type Detail Facility Start: [facility] Start: 1985 Sex Assigned At Male F [facility] Evaluation note 06-27-2024 Note Date & Type Note Facility 06-27-2024 Evaluation note Authored June 27, 2024 10:14am The above note written by Raimundo Haq LPN, acting as human recorder, note dictated by Dr. Freddy Gutierres. [facility] Work Phone: Evaluation note Note Date & Type Note Facility Evaluation note No assessment information availa ble [facility] Work Phone: Evaluation note Note Date & Type Note Facility Evaluation note Authored June 27, 2024 10:14am The above note written by Raimundo Haq LPN, acting as human recorder, note dictated by Dr. Freddy Gutierres. [facility] Work Phone: Summary Purpose Family History No Family History Records FoundNo Family History Records Found Advance Directives No Advanced Directives Records Found Advance Directive Response Recorded Date/ Time Advance Directives No September 9:36am Chief Complaint and Reason for Visit Chief Complaint ear pain Chief Complaint ear pain wellness; ear infection Reason for Visit Acute effusion of gareth th middle ears Fatigue Screening for prostate cancer Eustachian tube dysfunction Wellness examination Additional Source Comments (unrecognized sect ion and content) No Status Records FoundNo Status Records Found INFORMATION SOURCE (unrecogn ized section and content) DATE CREATED AUTHOR 08/08/2023 [facility] EPIC DATE CREATED AUTHOR AUTHOR'S ORGANIZ ATION 07/22/2024 [facility] Care Teams (unrecognized sec tion and content) Team Status: Active Member Role Status Dates Freddy Gutierres DO Primary Care Provider Active Team Status: Inactive Member Role Status Dates Freddy Gutierres DO Primary Care Provider Active Sta rt: June 02, 2024 End: June 02, 2024 Romy Ozuna APRN Attending Provider Active Start: June 02, 2024 End: June 02, 2024 Team Status: Inactive Member Role Status Dates Freddy Gutierres DO Primary Care Provide r, Attending Provider Active Start: June 27, 2024 End: June 27, 2024 Team Status: Active Member Role Status Dates Freddy Gutierres DO Primary Care Provide r, Attending Provider Active Start: June 27, 2024 Team Status: Active Member Role Status Dates Freddy DO Bhavik Primary Care Provide r, Other Provider Active Start: June 27, 2024 Melchor Rader MD Attending Provider Active Start: June 27, 2024 Goals (unrecognized section and content) Goals may be documented in a n alternate sectionGoals may be documented in an alternate sectionGoals may be documented in an alternate section FOR RECORDS PERTAINING TO PATIENTS WHO ARE OR HAVE BEEN ENROLLED IN A CHEMICAL DEPENDENCY/SUBSTANCEABUSE PROGRAM, SOME INFORMATION MAY BE OMITTED. This clinical summary was aggregated from multiple sources. Caution should be exercised in using it in the provision of clinical care. This summary normalizes information from multiple sources, and as a consequence, information in this document may materially change the coding, format and clinical context of patient data. In addition, data may be omitted in some cases. CLINICAL DECISIONS SHOULD BE BASED ON THE PRIMARY CLINICAL RECORDS. [employer] [facility]. provides no warranty or guarantee of the accuracy or completeness of information in this document.
[2024-11-06] MEDS: KETOROLAC TROMETHAMINE 30 MG/ML VIAL IVP (05:50)
[2024-11-06 05:54] LABS: Basophils Percent Auto 0.3 % (0.2-2.0); Eosinophils Absolute Auto 0.1 10^3/uL (0.0-0.7); Hematocrit 43.8 % (42.0-54.0); Hemoglobin 15.4 g/dL (14.0-18.0); Immature Granulocytes Abs Auto 0.03 10^3/uL (0.00-0.03); Immature Granulocytes Pct Auto 0.3 % (0.0-0.5); Lymphocytes Absolute Auto 2.3 10^3/uL (1.2-3.8); Lymphocytes Percent Auto 24.6 % (20.5-60.0); Mean Corpuscular HGB Conc 35.2 g/dL (29.9-35.2); Mean Corpuscular Hemoglobin 29.7 pg (25.9-34.0); Mean Corpuscular Volume 84.4 fL (80.0-94.0); Mean Platelet Volume 10.9 fL (9.5-13.5); Monocytes Absolute Auto 0.9 10^3/uL (0.3-0.8); Neutrophils Absolute Auto 5.8 10^3/uL (1.4-6.5); Neutrophils Percent Auto 63.8 % (43.0-75.0); Platelet Count 186 10^3/uL (150-450); Red Blood Count 5.19 10^6/uL (4.70-6.10); Red Cell Distribution Width 12.3 % (11.0-15.0); White Blood Count 9.1 10^3/uL (4.0-11.0)
--- NOTE | 2024-11-06 06:02 | ED_ITS ---
HPI HPI - General Adult General Chief complaint: Urogenital-Male Stated complaint: BACK PAIN, POST SURGERY Time Seen by Provider: 11/06/24 05:47 Source: patient Mode of arrival: walk-in History of Present Illness HPI narrative: This gentleman is a pleasant 39-year-old male presenting to the emergency department for profound right flank pain. His symptoms were preceded by receiving lithotripsy on November 04. The patient's procedure was performed by Dr. Hardy. Apparently at that time he had a 3 mm obstructive stone. There was also some concern that he had a urinary tract infection. Therefore, he was started on cefdinir which she has been compliant with. Today he is presenting with intolerable pain. He states every 6 hours it flares. He try to contact Dr. Hardy but has not received a call back from him yet. Unknown what makes it worse. He stated that Toradol helped when he was here on Monday but only for approximately 30 minutes. He does not have a stent in place. Pain radiates to the anterior portion of the abdomen. He does not have any testicular pain. No fever or chills. Patient slightly nauseated. No vomiting. Related Data Home Medications ?Medication ?Instructions ?Recorded ?Confirmed loratadine 10 mg capsule (Allergy 10 mg PO DAILY 11/03/24 11/06/24 Relief (loratadine)) Previous Rx's ?Medication ?Instructions ?Recorded cefdinir 300 mg capsule 300 mg PO BID 5 days #10 caps 11/04/24 hydrocodone 5 mg-acetaminophen 325 1 tab PO Q4H PRN pain #14 tabs 11/06/24 mg tablet ketorolac 10 mg tablet 10 mg PO Q8H PRN pain 1 day #10 11/06/24 tabs ondansetron 4 mg disintegrating 4 mg PO Q4H PRN nausea and 11/06/24 tablet vomiting #14 tabs tamsulosin 0.4 mg capsule (Flomax) 0.4 mg PO DAILY #14 caps 11/06/24 Allergies Allergy/AdvReac Type Severity Reaction Status Date / Time No Known Drug Allergies Allergy Verified 11/06/24 05:41 Opioid HPI Opioid Management Most Recent Opioid Data: Last Pain Scale 9 11/06/24 05:50 11/06/24 Last Pain Assessment 11/04/24 15:05 Last MAR Pain Assessment 11/06/24 05:50 Last ORT Total Score 0 11/03/24 05:03 11/03/24 Last ORT Risk Category Low Risk 11/03/24 05:03 11/03/24 Review of Systems ROS Status of ROS 10 or more systems reviewed and unremark able except as noted in history and below [facility] Medical History Laceration of face ?S01.81XA - Laceration without foreign body of other part of head, initial encounter (ICD-10) Ear infection ?H66.90 - Otitis media, unspecified, unspecified ear (ICD-10) Surgical History H/O foot surgery ?Z98.890 - Other specified postprocedural states (ICD-10) Social History Highest level of school completed/degree received: high school graduate Little interest or pleasure in doing things: not at all Feeling down, depressed, or hopeless: not at all Do you think of yourself as: straight/heterosexual Gender Identity: male Exam Narrative Exam Narrative: Prior to examining the patient, I have washed with hospital approved and provided [employer] and have also applied gloves.? Prior to touching the patient, I asked for consent to examine the patient.? General: Alert and oriented, well nourished, moderate distress. Eye: PERRL, EOMI, normal conjunctiva. HENT: Normocephalic, normal hearing, moist oral mucosa, no scleral icterus, Lungs: Clear to auscultation and percussion, non-labored respiration. No rhonchi, rales, wheezing Heart: Normal rate, regular rhythm, no murmur, gallop or edema. Abdomen: Soft, non-tender, non-distended, normal bowel sounds, no masses. No CVA tenderness Musculoskeletal: Normal range of motion and strength, no tenderness or swelling. Skin: Skin is warm, dry and pink, no rashes or lesions. Neurologic: Awake, alert, and oriented X3, CN II-XII intact. Psychiatric: Cooperative, appropriate mood and affect.? Following the conclusion of the examination, I have washed my hands thoroughly after removing examination gloves. Constitutional Vital Signs, click to edit/add: Last Vital Signs Temp 98.1 F 11/06/24 05:37 Resp 20 11/06/24 05:37 BP 158/114 H 11/06/24 05:37 Pulse Ox 95 11/06/24 05:37 O2 Del Method Room Air 11/06/24 05:37 Course Course Hospital Course: Patient is a 39-year-old male who drove himself to the emergency department for right flank pain essentially 2 days after he had lithotripsy performed. Patient was unable to reach his urologist. Patient had an IV placed on the right upper extremity. He was given Toradol 30 mg IV push and Zofran 4 mg IV push. Patient in the interim will receive a CBC, BMP, urinalysis and a CT scan to reassess the location of the stone. Reevaluation(s) Reevaluation #1: I checked on the patient. His pain is currently a 3 out of 10 and tolerable. He stated he did not receive any Flomax upon discharge. We had a discussion about potential management. I have yet to see the results of the CT scan as well as the blood work and urine analysis. But we discussed that he would receive Flomax, hydrocodone, Toradol, and Zofran upon discharge as long as it does not appear that he has a septic stone. Time: 06:26 Reevaluation #2: Patient's pain is starting to escalate again. Patient appears anxious and uncomfortable. I rechecked his blood pressure. Is 132/96. Patient consents to receiving some morphine and Flomax here in the emergency department continue to monitor. If his pain is indeed controlled we could still send the patient home. Time: 07:02 Vital Signs Vital signs: Vital Signs Temperature 98.1 F 11/06/24 05:37 Respiratory Rate 20 11/06/24 05:37 Blood Pressure 158/114 H 11/06/24 05:37 Pulse Oximetry 95 11/06/24 05:37 Oxygen Delivery Method Room Air 11/06/24 05:37 Temperature 98.1 F 11/06/24 05:37 Respiratory Rate 20 11/06/24 05:37 Blood Pressure 158/114 H 11/06/24 05:37 Pulse Oximetry 95 11/06/24 05:37 Oxygen Delivery Method Room Air 11/06/24 05:37 Medical Decision Making MDM Narrative Medical decision making narrative: Patient is a 39-year-old male who recently had lithotripsy surgery for a right ureteral calculi. Patient is presenting today with significant right flank pain. Differential Diagnosis Differential Diagnosis: Pyelonephritis, urinary tract infection, obstructive renal calculi, hydro Medical Records Medical records reviewed: Yes I reviewed the patient's medical records Lab Data Lab results reviewed: Yes I reviewed the patient's lab results Labs: Lab Results 11/06/24 11/06/24 Range/Units 05:42 06:15 WBC 9.1 (4.0-11.0) 10^3/uL RBC 5.19 (4.70-6.10) 10^6/uL Hgb 15.4 (14.0-18.0) g/dL Hct 43.8 (42.0-54.0) % MCV 84.4 (80.0-94.0) fL MCH 29.7 (25.9-34.0) pg MCHC 35.2 (29.9-35.2) g/dL RDW 12.3 (11.0-15.0) % Plt Count 186 (150-450) 10^3/uL MPV 10.9 (9.5-13.5) fL Neut % (Auto) 63.8 (43.0-75.0) % Lymph % (Auto) 24.6 (20.5-60.0) % [place] % (Auto) 10.0 (1.7-12.0) % Eos % (Auto) 1.0 (0.9-7.0) % Baso % (Auto) 0.3 (0.2-2.0) % Neut # (Auto) 5.8 (1.4-6.5) 10^3/uL Lymph # (Auto) 2.3 (1.2-3.8) 10^3/uL [place] # (Auto) 0.9 H (0.3-0.8) 10^3/uL Eos # (Auto) 0.1 (0.0-0.7) 10^3/uL Baso # (Auto) 0.0 (0.0-0.1) 10^3/uL Abs Immat Gran (auto) 0.03 (0.00-0.03) 10^3/uL Imm/Tot Granulo (auto) 0.3 (0.0-0.5) % Sodium 140 (136-145) mmol/L Potassium 3.7 (3.5-5.1) mmol/L Chloride 104 (98-107) mmol/L Carbon Dioxide 29.4 (21.0-32.0) mmol/L Anion Gap 10.3 BUN 13.0 (7.0-18.0) mg/dL Creatinine 1.25 (0.70-1.30) mg/dL Est GFR ( Amer) >60 (>=60 mL/min/1.73m^2) Est GFR (Non-Af Amer) >60 (>=60 mL/min/1.73m^2) BUN/Creatinine Ratio 10.4 Glucose 95 (74-106) mg/dL Calcium 9.0 (8.5-10.1) mg/dL Urine Color Yellow (YELLOW) Urine Clarity Clear (CLEAR) Urine pH 5.5 (5.0-9.0) Ur Specific [place] 1.025 (1.005-1.025) Urine Protein 100 A (NEG/TRACE) mg/dL Urine Glucose (UA) Negative (NEGATIVE) mg/dL Urine Ketones Negative (NEGATIVE) mg/dL Urine Occult Blood Large A (NEGATIVE) Urine Nitrite Negative (NEGATIVE) Urine Bilirubin Negative (NEGATIVE) Urine Urobilinogen 0.2 (0.2-1.0) EU/dL Ur Leukocyte Esterase Negative (NEGATIVE) Urine RBC 10-20 A (0-2) #/HPF Urine WBC 0-2 A (NONE SEEN) #/HPF Ur Squamous Epith Cells None seen (NONE/RARE) #/LPF Urine Crystals None seen (None Seen) #/HPF Urine Bacteria Small A (NONE SEEN) #/HPF Urine Casts None seen (NONE SEEN) #/LPF Urine Mucus None seen (NONE SEEN) Ur Culture Indicated? [place] [place] no evidence of anemia or leukocytosis. Basic metabolic panel was unremarkable. Urine analysis is positive for blood but there is no evidence of leukocytes, nitrites, or leukocyte esterase. Although it does not appear that the patient has an active urinary tract infection he is currently on cefdinir and I will advocate continued use of that at this time Imaging Data CT scan - abdomen: Attestation: I have reviewed the pertinent imaging results. Radiologist's impression: Impression mild right hydronephrosis unchanged compared to November 03, 2024. The previously seen 3 mm calculus in the right ureterovesicular junction has passed. Fatty liver.: Discharge Plan Discharge Chief Complaint: Urogenital-Male Clinical Impression: Renal colic, Intractable pain Patient Disposition: Home, Self-Care Time of Disposition Decision: 07:10 Condition: Good Mode of Transportation: Private Vehicle Prescriptions / Home Meds: New ketorolac 10 mg tablet 10 mg PO Q8H PRN (Reason: pain) 1 Days Qty: 10 0RF hydrocodone-acetaminophen 5-325 mg tablet 1 tab PO Q4H PRN (Reason: pain) Qty: 14 0RF ondansetron 4 mg tablet,disintegrating 4 mg PO Q4H PRN (Reason: nausea and vomiting) Qty: 14 0RF tamsulosin [Flomax] 0.4 mg capsule 0.4 mg PO DAILY Qty: 14 0RF No Action Allergy Relief (loratadine) 10 mg capsule 10 mg PO DAILY cefdinir 300 mg capsule 300 mg PO BID 5 Days Qty: 10 0RF Print Language: Omani Instructions: Flank Pain (ED), Hydronephrosis (ED) Additional Instructions: Thank you for trusting me with your care. Referrals: Physician,Non-Staff, MD [Primary Care Provider] - 1 week
[2024-11-06] MEDS: ONDANSETRON PF 4 MG/2 ML VIAL IV (06:04)
[2024-11-06 06:18] LABS: Anion Gap 10.3; BUN Creatinine Ratio 10.4; Carbon Dioxide 29.4 mmol/L (21.0-32.0); Chloride 104 mmol/L (98-107); Estimated GFR (African America >60 (>=60 mL/min/1.73m^2); Estimated GFR (Non-African Ame >60 (>=60 mL/min/1.73m^2); Glucose 95 mg/dL (74-106); Potassium 3.7 mmol/L (3.5-5.1); Sodium 140 mmol/L (136-145)
[2024-11-06 06:24] LABS: Bilirubin Urine NEGATIVE (NEGATIVE); Blood Urine LARGE (NEGATIVE); Clarity Urine CLEAR (CLEAR); Color Urine YELLOW (YELLOW); Glucose Urine UA NEGATIVE (NEGATIVE); Ketones Urine NEGATIVE (NEGATIVE); Leukocyte Esterase Urine NEGATIVE (NEGATIVE); Nitrite Urine NEGATIVE (NEGATIVE); Protein Urine 100 mg/dL (NEG/TRACE); Specific Gravity Urine 1.025 (1.005-1.025); Urobilinogen Urine 0.2 EU/dL (0.2-1.0); pH Urine 5.5 (5.0-9.0)
[2024-11-06 06:32] LABS: Bacteria Urine SMALL #/HPF (NONE SEEN); Crystals Seen? None Seen #/HPF (None Seen); Mucus Urine NONE SEEN (NONE SEEN); Squamous Epithelial Cell Urine NONE SEEN #/LPF (NONE/RARE); WBC Urine 0-2 #/HPF (NONE SEEN)
[2024-11-06 06:33] LABS: Cast Seen? NONE SEEN #/LPF (NONE SEEN); Urine Culture Indicated YES-FRMC
--- NOTE | 2024-11-06 06:45 | PC.NURSE ---
Pt states the pain is at a 2-4 and is tolerable.
[2024-11-06] MEDS: MORPHINE SULFATE 4 MG/ML VIAL IV (07:25)
[2024-11-06] MEDS: TAMSULOSIN HCL 0.4 MG CAPSULE PO (07:44)
[2024-11-06 08:40] VITALS: PULSE 74; O2SAT 100
== END 2024-11-06 08:46 | disposition home or self-care (01) ==
PROVIDERS: Emergency Provider Emergency Medicine
DX: N23 Unspecified renal colic (principal); Z98.890 Other specified postprocedural states; N13.30 Unspecified hydronephrosis; R10.9 Unspecified abdominal pain
CPT/HCPCS: 36415; 74176; 80048; 81001; 85025; 87086; 96374; 96375; 99284; J1885; J2270; J2405